=== PATIENT | female | born 1990 | race Two or more races ===

== ENCOUNTER → 2016-08-09 | Outpatient (CLI) | payer OTHER ==
[~2016-08-09] MED LIST: CEPH-460 PO; FERRCAP6 PO; PREN1TAB20 PO
== END ==
LOC: HPND 10:05
PROVIDERS: ATTEND Obstetrics & Gynecology
DX: O35.1XX0 Maternal care for (suspected) chromosomal abnormality in fetus, not applicable or unspecified (principal); Z3A.31 31 weeks gestation of pregnancy
CPT/HCPCS: 76811

== ENCOUNTER → 2016-09-06 | Outpatient (CLI) | payer OTHER | LOC: HPND 09:18 | PROVIDERS: ATTEND Obstetrics & Gynecology | DX: O35.1XX0 Maternal care for (suspected) chromosomal abnormality in fetus, not applicable or unspecified (principal); Z03.73 Encounter for suspected fetal anomaly ruled out | CPT/HCPCS: 76816 ==

== ENCOUNTER 2016-09-20 10:31 | Inpatient (IN) | payer MEDICAID, OTHER ==
[2016-09-20] VITALS (26 sets, daily range): BP systolic 97–117; BP diastolic 50–77; PULSE 76–116; RESP 18; TEMP 97.9–98.8
[~2016-09-20 10:31] MED LIST changes: -CEPH-460 PO
[2016-09-20] MEDS ORDERED: LACTATED RINGER'S 1000 ML INJ 1,000 ML IV PRN (11:05)
[2016-09-20] MEDS ORDERED: MINERAL OIL 10 ML VIAL TOPICAL PRN (11:15)
[2016-09-20] MEDS ORDERED: ONDANSETRON HCL 4 MG/2 ML VIAL IV PRN (11:15)
[2016-09-20] MEDS ORDERED: LIDOCAINE HCL 1% 50 ML VIAL I-DERMAL PRN (11:15)
[2016-09-20] MEDS ORDERED: SODIUM CHLORID 0.9% 500 ML INJ 500 ML IV PRN (11:15)
[2016-09-20] MEDS ORDERED: LIDOCAINE HCL 1% 50 ML VIAL INFIL PRN (11:15)
[2016-09-20] MEDS ORDERED: CITRIC ACID-SODIUM CITRATE LIQ 30 ML UDC PO SCH (11:15)
--- NOTE | 2016-09-20 11:16 | PD ---
HPI Chief Complaint S-ROM Date Seen: Sep 20, 2016 Time Seen: 11:00 Travel History International Travel<30 Days: No Contact w/Intl Traveler<30Days: No Known Affected Area: No History of Present Illness HPI Patient is a 26-year-old at 37 weeks who presents with SROM. [facility]. She noticed spontaneous rupture membranes as she was sleeping last night at 12:30 AM with a lot of warm, wet, clear fluid. She reports a little bit of contractions and she denies vaginal bleeding. She reports movement. Of note, she is GBS positive. GIL is 10/11/16. Amnisure was positive. Para: 1 : 2 History Past Medical History Medical History: Denies Significant Hx Obstetric History Obstetric History Patient is a . Her last delivery was uncomplicated full-term at 37 weeks with a 6 lbs. 5 oz. baby. She currently has a healthy 6-year-old. Past Surgical History Surgical History: No Previous Surgery Family History Family History: Negative Social History Narrative Social History Patient lives at home with her mother, her mother's boyfriend, her boyfriend, and her [id number]. Alcohol Use: No Tobacco Use: No Substance Abuse: No Allergies-Medications (Allergen,Severity, Reaction): Coded Allergies: No Known Allergies (Unverified , 09/20/16) Home Meds Active Scripts Ferrous Fumarate-Iron Polysacc (Integra F 125-1 mg)1 Cap Cap1 Tab PO DAILY #30 BOTTLE Ref 4 Prov:Rama Fleming 08/16/16 W/O Vit A W/ Fe Carbonyl (Citranatal Rx)27-1 Mg Tab1 Tab PO DAILY #30 TAB Ref 10 Prov:Cee Mckay CNMP 05/22/16 Discontinued Scripts Cephalexin (Keflex)500 Mg Gpe502 Mg PO Q8H #21 CAP Ref 0 Prov:Rama Fleming 08/16/16 Review of Systems General / Constitutional: No: Fever, Weight Gain, Chills, Other Eyes: No: Diploplia, Blurred Vision, Visual changes, Pain, Photophobia, Other HENT: No: Headaches, Vertigo, Lightheadedness Cardiovascular: No: Irregular Rhythm, Chest Pain or Discomfort, Palpitations, Tachycardia, Syncope, Varicosities, Edema, Cyanosis Respiratory: No: Cough, Short of Breath, Other Gastrointestinal: No: Nausea, Vomiting, Diarrhea Genitourinary: No: Dysuria, Decreased Urinary Output, Oliguria Musculoskeletal: Cramping, Pain, No: Limited ROM, Weakness, Edema Physical Exam Vital Signs Date Time Temp Pulse Resp B/P Pulse Ox O2 Delivery O2 Flow Rate FiO2 09/20/16 10:50 110 09/20/16 10:49 97.9 116 18 112/77 Narrative GENERAL: Well-nourished, well-developed patient. SKIN: Warm and dry. HEAD: Normocephalic and atraumatic. EYES: No scleral icterus. No injection or drainage. ENT: No nasal drainage noted. Mucous membranes pink. Airway patent. NECK: Supple, trachea midline. No JVD. CARDIOVASCULAR: Regular rate and rhythm without murmurs, gallops, or rubs. RESPIRATORY: Breath sounds equal bilaterally. No accessory muscle use. ABDOMEN/GI: Abdomen soft, non-tender, bowel sounds present, no rebound, no guarding Gravid to 37 weeks size GENITOURINARY: External Genitalia: intact and normal in appearance Cervix: Thick, posterior Dilatation: 1-2cm Effacement: 20% Station: -3 Presentation: Vertex Membranes: Ruptured Uterine Contractions: Every 4-5 minutes FHT's: Category: Cat I Baseline: 160 Reactive: Reactive Variability: moderate Decels: Some variable decelerations EXTREMITIES: No cyanosis or edema. BACK: Nontender without obvious deformity. No CVA tenderness. NEUROLOGICAL: Awake and alert. Motor and sensory grossly within normal limits. Five out of 5 muscle strength in all muscle groups. Normal speech. Data Data Vital Signs Reviewed: Yes Orders Vital Signs (Adult) .ON ADMISSION (09/20/16 10:46) ^ Labor Status (09/20/16 10:46) ^ Non Stress Test (09/20/16 10:46) ^ Hydration (09/20/16 10:46) Pamg-1 Test .ONCE (09/20/16 10:46) Ob (2e) Additional Admit Info (09/20/16 10:54) Admit To Inpatient (09/20/16 ) Code Status (09/20/16 11:05) Vital Signs (Adult) .Per protocol (09/20/16 11:05) Activity Oob Ad Rosaura (09/20/16 11:05) Heart (09/20/16 11:05) Amnioinfusion (09/20/16 11:05) Urinary Catheter Management .ONCE (09/20/16 11:05) Diet Liquid (09/20/16 Lunch) Lactated Ringer's 1000 Ml Inj (Lr 1000 M (09/20/16 11:05) Lactated Ringer's 1000 Ml Inj (Lr 1000 M (09/20/16 11:05) Sodium Chlorid 0.9% 500 Ml Inj (Ns 500 M (09/20/16 11:15) Sodium Chlor 0.9% 1000 Ml Inj (Ns 1000 M (09/20/16 11:25) Lidocaine 1% Inj (50 Ml) (Xylocaine 1% I (09/20/16 11:15) Citric Acid-Sodium Citrate Liq (Bicitra (09/20/16 11:15) Ondansetron Inj (Zofran Inj) (09/20/16 11:15) Fentanyl Inj (Fentanyl Inj) (09/20/16 11:15) Fentanyl Inj (Fentanyl Inj) (09/20/16 11:15) MDM Plan Patient is a 26-year-old at 37 weeks who presents with SROM. Amnisure was positive. [facility] Of note, she is GBS positive. GIL is 10/11/16. Cervical exam is 1-2 cm, 20% effaced, -3 position. Category 1 tracing with some variable decelerations. Contractions every 4-5 minutes. 1. SROM with +Amnisure Admit to inpatient for L&D Routine labs including ABO/Rh blood type, hold clot, type and screen, CBC, UA Liquid diet Patient declined any pain medications at this time LR IV Penicillin for GBS+ Monitor vital signs Monitor labor status/tocometry Monitor heart rate D/w Douglas Dockery MD R1 Sep 20, 2016 11:16
[2016-09-20] MEDS ORDERED: SODIUM CHLOR 0.9% 1000 ML INJ 1,000 ML IV PRN (11:25)
--- NOTE | 2016-09-20 11:36 | HHI.HP ---
History & Physical H&P HPI HPI Chief Complaint S-ROM Date Seen: Sep 20, 2016 Time Seen: 11:00 Travel History International Travel<30 Days: No Contact w/Intl Traveler<30Days: No Known Affected Area: No History of Present Illness HPI Patient is a 26-year-old at 37 weeks who presents with SROM. [facility]. She noticed spontaneous rupture membranes as she was sleeping last night at 12:30 AM with a lot of warm, wet, clear fluid. She reports a little bit of contractions and she denies vaginal bleeding. She reports movement. Of note, she is GBS positive. GIL is 10/11/16. Amnisure was positive. Para: 1 : 2 History (Limited) History Past Medical History Medical History: Denies Significant Hx Obstetric History Obstetric History Patient is a . Her last delivery was uncomplicated full-term at 37 weeks with a 6 lbs. 5 oz. baby. She currently has a healthy 6-year-old. Past Surgical History Surgical History: No Previous Surgery Family History Family History: Negative Social History Narrative Social History Patient lives at home with her mother, her mother's boyfriend, her boyfriend, and her [id number]. Alcohol Use: No Tobacco Use: No Substance Abuse: No Allergies-Medications Allergies-Medications (Allergen,Severity, Reaction): Coded Allergies: No Known Allergies (Unverified , 09/20/16) Home Meds Active Scripts Ferrous Fumarate-Iron Polysacc (Integra F 125-1 mg)1 Cap Cap1 Tab PO DAILY #30 BOTTLE Ref 4 Prov:Rama Fleming 08/16/16 W/O Vit A W/ Fe Carbonyl (Citranatal Rx)27-1 Mg Tab1 Tab PO DAILY #30 TAB Ref 10 Prov:Cee Mckay CNM [facility] 05/22/16 Discontinued Scripts Cephalexin (Keflex)500 Mg Bxa139 Mg PO Q8H #21 CAP Ref 0 Prov:Rama Fleming 08/16/16 ROS Review of Systems General / Constitutional: No: Fever, Weight Gain, Chills, Other Eyes: No: Diploplia, Blurred Vision, Visual changes, Pain, Photophobia, Other HENT: No: Headaches, Vertigo, Lightheadedness Cardiovascular: No: Irregular Rhythm, Chest Pain or Discomfort, Palpitations, Tachycardia, Syncope, Varicosities, Edema, Cyanosis Respiratory: No: Cough, Short of Breath, Other Gastrointestinal: No: Nausea, Vomiting, Diarrhea Genitourinary: No: Dysuria, Decreased Urinary Output, Oliguria Musculoskeletal: Cramping, Pain, No: Limited ROM, Weakness, Edema Physical Exam Physical Exam Vital Signs Date Time Temp Pulse Resp B/P Pulse Ox O2 Delivery O2 Flow Rate FiO2 09/20/16 10:50 110 09/20/16 10:49 97.9 116 18 112/77 Narrative GENERAL: Well-nourished, well-developed patient. SKIN: Warm and dry. HEAD: Normocephalic and atraumatic. EYES: No scleral icterus. No injection or drainage. ENT: No nasal drainage noted. Mucous membranes pink. Airway patent. NECK: Supple, trachea midline. No JVD. CARDIOVASCULAR: Regular rate and rhythm without murmurs, gallops, or rubs. RESPIRATORY: Breath sounds equal bilaterally. No accessory muscle use. ABDOMEN/GI: Abdomen soft, non-tender, bowel sounds present, no rebound, no guarding Gravid to 37 weeks size GENITOURINARY: External Genitalia: intact and normal in appearance Cervix: Thick, posterior Dilatation: 1-2cm Effacement: 20% Station: -3 Presentation: Vertex Membranes: Ruptured Uterine Contractions: Every 4-5 minutes FHT's: Category: Cat I Baseline: 160 Reactive: Reactive Variability: moderate Decels: Some variable decelerations EXTREMITIES: No cyanosis or edema. BACK: Nontender without obvious deformity. No CVA tenderness. NEUROLOGICAL: Awake and alert. Motor and sensory grossly within normal limits. Five out of 5 muscle strength in all muscle groups. Normal speech. Data Data Data Vital Signs Reviewed: Yes Orders Vital Signs (Adult) .ON ADMISSION (09/20/16 10:46) ^ Labor Status (09/20/16 10:46) ^ Non Stress Test (09/20/16 10:46) ^ Hydration (09/20/16 10:46) Pamg-1 Test .ONCE (09/20/16 10:46) Ob (2e) Additional Admit Info (09/20/16 10:54) Admit To Inpatient (09/20/16 ) Code Status (09/20/16 11:05) Vital Signs (Adult) .Per protocol (09/20/16 11:05) Activity Oob Ad Rosaura (09/20/16 11:05) Heart (09/20/16 11:05) Amnioinfusion (09/20/16 11:05) Urinary Catheter Management .ONCE (09/20/16 11:05) Diet Liquid (09/20/16 Lunch) Lactated Ringer's 1000 Ml Inj (Lr 1000 M (09/20/16 11:05) Lactated Ringer's 1000 Ml Inj (Lr 1000 M (09/20/16 11:05) Sodium Chlorid 0.9% 500 Ml Inj (Ns 500 M (09/20/16 11:15) Sodium Chlor 0.9% 1000 Ml Inj (Ns 1000 M (09/20/16 11:25) Lidocaine 1% Inj (50 Ml) (Xylocaine 1% I (09/20/16 11:15) Citric Acid-Sodium Citrate Liq (Bicitra (09/20/16 11:15) Ondansetron Inj (Zofran Inj) (09/20/16 11:15) Fentanyl Inj (Fentanyl Inj) (09/20/16 11:15) Fentanyl Inj (Fentanyl Inj) (09/20/16 11:15) MDM MDM Plan Patient is a 26-year-old at 37 weeks who presents with SROM. Amnisure was positive. [facility] Of note, she is GBS positive. GIL is 10/11/16. Cervical exam is 1-2 cm, 20% effaced, -3 position. Category 1 tracing with some variable decelerations. Contractions every 4-5 minutes. 1. SROM with +Amnisure Admit to inpatient for L&D Routine labs including ABO/Rh blood type, hold clot, type and screen, CBC, UA Liquid diet Patient declined any pain medications at this time LR IV Penicillin for GBS+ Monitor vital signs Monitor labor status/tocometry Monitor heart rate D/w Dr. Riley Cabral,Douglas Simpson MD R1 Sep 20, 2016 11:36
[2016-09-20] MEDS ORDERED: PENICILLIN G POTASSIUM INJ 5,000,000 UNITS in SODIUM CHLORIDE 0.9% INJ 100 ML IV ONE (12:00)
[2016-09-20] MEDS ORDERED: OXYTOCIN 30 UNITS-500ML PREMIX 500 ML IV ONE (12:00)
[2016-09-20 12:07] LABS: AUTOMATED NEUTROPHIL # 8.3 TH/MM3 (1.8-7.7); BASOPHIL % 0.1 % (0.0-2.0); EOSINOPHIL # 0.1 TH/MM3 (0-0.4); EOSINOPHIL % 0.5 % (0.0-4.0); HEMATOCRIT 34.3 % (35.0-46.0); HEMO FLAGS DIFF FINAL; LYMPH % 12.7 % (9.0-44.0); LYMPHOCYTE # 1.3 TH/MM3 (1.0-4.8); MEAN CELL VOLUME 93.3 FL (80.0-100.0); MEAN CORPUSCULAR HEMOGLOBIN 30.4 PG (27.0-34.0); MEAN CORPUSCULAR HGB CONC 32.6 % (32.0-36.0); MONO % 8.5 % (0.0-8.0); NEUT % 78.2 % (16.0-70.0); PLATELET COUNT 250 TH/MM3 (150-450); RED BLOOD COUNT 3.67 MIL/MM3 (4.00-5.30); RED CELL DISTRIBUTION WIDTH 16.1 % (11.6-17.2); WHITE BLOOD COUNT 10.6 TH/MM3 (4.0-11.0)
[2016-09-20] MEDS: LACTATED RINGER'S 1000 ML INJ 1,000 ML IV SCH ×2 (12:19→20:56)
[2016-09-20] MEDS ORDERED: OXYTOCIN 30 UNITS-500ML PREMIX 500 ML IV SCH (15:15)
[2016-09-20] MEDS: PENICILLIN G POTASSIUM INJ 2,500,000 UNITS in SODIUM CHLORIDE 0.9% INJ 100 ML IV SCH ×2 (16:23→20:56)
[2016-09-21] VITALS (14 sets, daily range): BP systolic 92–137; BP diastolic 52–77; PULSE 71–97; RESP 16–24; TEMP 97.7–99.2
[2016-09-21] MEDS: PENICILLIN G POTASSIUM INJ 2,500,000 UNITS in SODIUM CHLORIDE 0.9% INJ 100 ML IV SCH (00:57)
--- NOTE | 2016-09-21 01:30 | PD.LABORPN ---
Subjective Subjective This is a 26y/o at 37w1d who was admitted with SROM since 1230a on 2016. Pt with spaced out contractions, Pitocin was started at 3:30p. Tracing has been overall cat 1, except oxytocin had to be halved due to tachysystole and late decelerations. Pt feeling well, reports increased lower abdominal pain. Objective Vital Signs Vital Signs Date Time Temp Pulse Resp B/P Pulse Ox O2 Delivery O2 Flow Rate FiO2 09/21/16 00:30 77 18 116/65 09/21/16 00:30 98.8 09/20/16 23:26 98.8 108 18 109/64 09/20/16 22:56 98.8 09/20/16 22:30 76 18 115/57 09/20/16 21:30 18 09/20/16 21:30 79 102/60 09/20/16 20:30 18 09/20/16 20:30 79 99/57 09/20/16 20:00 117/64 09/20/16 20:00 83 18 09/20/16 19:30 83 110/68 09/20/16 19:30 18 09/20/16 19:30 98.5 09/20/16 18:33 85 113/63 09/20/16 18:00 18 09/20/16 18:00 116/62 09/20/16 18:00 82 Objective Pelvic Exam: Cervix: 6/80/-1 Membranes: ruptured Uterine Contractions: q 1-2 minutes apart FHT's: Category: 1 overall, when not tachysystole Assessment/Plan Problem List: (1) Prolonged rupture of membranes (2) 37 weeks gestation of Assessment and Plan 26y/o at 37w1d with pronged rupture of membranes. -tracing overall reassuring, episode of /maternal tachycardia resolved with IVF. -declining epidural or pain meds -episode of late decelerations due to tachysystole, resolved once oxytocin was halved -pt sensitive to oxytocin, making change, will hold at this dose Lena Lin MD Sep 21, 2016 01:30
--- NOTE | 2016-09-21 04:28 | PD.OB.DELI ---
Anesthesia: None Episiotomy: None Vaginal Delivery: Normal Presentation: Occiput anterior Nuchal Cord: None Delayed cord clamping (45 sec): Yes Infant: Male One Minute : 9 Five Minute : 9 Weight: 3405 Placenta: Spontaneous delivery Laceration: 3 deg Repair: Chromic interrupted Estimated blood loss: 250 Additional Information 26y/o at 37w1d who was admitted with SROM since 1230a on 09/20/2016. Pt with spaced out contractions so Pitocin was started at 3:30p. Tracing has been overall cat 1, except oxytocin had to be halved due to tachysystole and late decelerations which improved the FHR tracing. She did not receive an epidural. She pushed very effectively and the head was delivered atraumatically. The body was delivered atraumatically and a vigorous male was delivered. The was placed on the maternal abdomen. The cord was clamped and cut after it stopped pulsating. The vagina was examined and 3rd degree vaginal laceration was noted which were repaired with 2-0/3-0 chromic. The placenta was delivered spontaneously and noted to be intact. The lacerations were noted to be hemostatic. Bleeding was minimal. All sponge/lap/ instruments were accounted for. Lena Lin MD Sep 21, 2016 04:28
[2016-09-21] MEDS ORDERED: DOCUSATE SODIUM 50 MG/SENNA 8.6 MG TAB PO PRN (04:30)
[2016-09-21] MEDS ORDERED: WITCH HAZEL 50%/GLYCERIN 12.5% 40 PAD JAR TOPICAL PRN (04:30)
[2016-09-21] MEDS ORDERED: ZOLPIDEM TARTRATE 5 MG TAB PO PRN (04:30)
[2016-09-21] MEDS ORDERED: ALUMINUM/MAGNESIUM/SIMETH 30 ML CUP PO PRN (04:30)
[2016-09-21] MEDS ORDERED: ONDANSETRON ODT 4 MG TAB PO PRN (04:30)
[2016-09-21] MEDS ORDERED: oxyCODONE/ACETAMINOPHEN 5 MG/325 MG TAB PO PRN (04:30)
[2016-09-21] MEDS ORDERED: ACETAMINOPHEN 325 MG TAB PO PRN (04:30)
[2016-09-21] MEDS ORDERED: OXYTOCIN 30 UNITS-500ML PREMIX 500 ML IV SCH (04:30)
[2016-09-21] MEDS ORDERED: BENZOCAINE 20% TOPICAL SPRAY 60 ML CAN TOPICAL PRN (04:30)
--- NOTE | 2016-09-21 08:18 | HHI.OB ---
Subjective Post Day: 0 Remarks Patient is a 26-year-old delivered at 37 weeks and 1 days. Patient is day 0 after . Patient's pain is well-controlled. Patient reports not yet eating and drinking, but she denies any nausea or vomiting. Patient reports minimal bleeding. Patient has not passed gas or bowel movements. Patient has walked a little with lower extremity pain that she describes as weakness and without any chest pain or shortness of breath. Patient reports desire for contraception with IUD and breast-feeding. (Douglas Cabral MD R1) Objective Vitals/I&O Vital Signs Date Time Temp Pulse Resp B/P Pulse Ox O2 Delivery O2 Flow Rate FiO2 09/21/16 06:48 97.7 81 16 112/70 09/21/16 05:15 109/59 09/21/16 05:15 98.2 72 18 09/21/16 05:00 77 18 106/60 09/21/16 04:45 18 09/21/16 04:45 75 104/55 09/21/16 04:30 85 18 109/63 09/21/16 04:15 87 18 108/60 09/21/16 04:00 71 107/52 09/21/16 04:00 98.4 18 09/21/16 03:00 99.1 09/21/16 03:00 76 18 112/59 09/21/16 02:43 75 18 137/70 09/21/16 02:31 99.2 09/21/16 02:31 78 18 131/70 09/21/16 02:30 99.2 78 18 131/70 09/21/16 01:30 75 18 126/77 09/21/16 00:30 77 18 116/65 09/21/16 00:30 98.8 09/20/16 23:26 98.8 108 18 109/64 09/20/16 22:56 98.8 09/20/16 22:30 76 18 115/57 09/20/16 21:30 18 09/20/16 21:30 79 102/60 09/20/16 20:30 18 09/20/16 20:30 79 99/57 09/20/16 20:00 117/64 09/20/16 20:00 83 18 09/20/16 19:30 83 110/68 09/20/16 19:30 18 09/20/16 19:30 98.5 09/20/16 18:33 85 113/63 09/20/16 18:00 18 09/20/16 18:00 116/62 09/20/16 18:00 82 09/20/16 16:58 98.1 79 18 09/20/16 16:58 114/68 09/20/16 16:20 80 09/20/16 16:20 114/72 09/20/16 15:35 88 109/60 09/20/16 15:35 18 09/20/16 15:14 98.7 09/20/16 14:43 83 18 110/64 09/20/16 13:43 98.3 89 18 97/50 09/20/16 11:38 107/69 09/20/16 11:37 18 09/20/16 11:30 99 09/20/16 11:25 107 09/20/16 11:20 102 09/20/16 11:15 100 09/20/16 11:10 109 09/20/16 11:05 103 09/20/16 11:00 109 09/20/16 10:50 110 09/20/16 10:49 97.9 116 18 112/77 Objective Remarks GENERAL: Well-nourished, well-developed patient. CARDIOVASCULAR: Regular rate and rhythm without murmurs, gallops, or rubs. RESPIRATORY: Breath sounds equal bilaterally. No accessory muscle use. ABDOMEN/GI: Abdomen soft, non-tender. Fundus: Firm, non-tender at umbilicus. GENITOURINARY: Light to moderate bleeding. EXTREMITIES: No cyanosis or edema, non-tender, without signs of DVT. Medications and IVs Current Medications Medications (Trade) Dose Ordered Sig/Viktoriya Route Start Time Stop Time Status Last Admin Lactated Ringer's 1,000 ml @ 125 mls/hr Q8H IV 09/20/16 11:05 09/20/16 20:56 Lactated Ringer's 1,000 ml @ 3,000 mls/hr Q20M PRN IV 09/20/16 11:05 Sodium Chloride 500 ml @ 1,000 mls/hr ONCE PRN IV 09/20/16 11:15 09/21/16 11:14 (NS 1000 ml Inj) 1,000 ml @ 100 mls/hr Q10H PRN IV 09/20/16 11:25 (Zofran Inj) 4 mg Q6H PRN IV 09/20/16 11:15 (fentaNYL INJ) 50 mcg Q1H PRN IV PUSH 09/20/16 11:15 Fentanyl Citrate 100 mcg 100 mcg Q1H PRN IV PUSH 09/20/16 11:15 (Pfizerpen-G Inj/ NS Inj) 100 ml @ 200 mls/hr Q4H IV 09/20/16 16:00 09/21/16 00:57 Mineral Oil 10 ml 10 ml UNSCH PRN TOPICAL 09/20/16 11:15 Oxytocin 500 ml @ 0 mls/hr TITRATE IV 09/20/16 15:15 09/20/16 15:37 (Pitocin 30 Units-NS 500 ml Premix) 500 ml @ 100 mls/hr CONTINUOUS IV 09/21/16 04:30 09/21/16 09:29 (Tylenol) 650 mg Q4H PRN PO 09/21/16 04:30 (Motrin) 600 mg Q6H PRN PO 09/21/16 04:30 (Percocet 5-325 Mg) 1 tab Q4H PRN PO 09/21/16 04:30 (Americaine 20% Top Spr) 1 spray Q4H PRN TOPICAL 09/21/16 04:30 09/21/16 06:37 (Tucks Pads) 1 applic QID PRN TOPICAL 09/21/16 04:30 09/21/16 06:37 (Hannah-Colace) 2 tab Q12H PRN PO 09/21/16 04:30 (Ambien) 5 mg HS PRN PO 09/21/16 04:30 (M-M-R Ii Inj) 0.5 ml ONCE ONCE SQ 09/21/16 16:00 09/21/16 16:01 (Boostrix Inj) 0.5 ml ONCE ONCE IM 09/21/16 16:00 09/21/16 16:01 (Mag-Al Plus Susp Liq) 15 ml Q8H PRN PO 09/21/16 04:30 (Zofran Odt) 4 mg Q6H PRN PO 09/21/16 04:30 (Douglas Cabral MD R1) Assessment/Plan Problem List: (1) Prolonged rupture of membranes (2) 37 weeks gestation of (3) (spontaneous vaginal delivery) Assessment and Plan Patient is a 26-year-old delivered at 37 weeks and 1 days. Patient is day 0 after . Patient was counseled to do 6 weeks of pelvic rest. Patient was counseled to follow up in 6 weeks. Patient requested follow-up and will think about contraception. --AF VSS --Continue routine care --Motrin and Percocet when necessary for pain --Encourage OOB --Pelvic rest for 6 weeks will need follow-up appointment at that time. --Contraception: Patient wants IUD but will think about short-term options --Anticipate discharge in 1-2 days Discharge Planning Anticipate discharge in 1-2 days (Douglas Cabral MD R1) Attending Attestation Pt seen and examined. Agree with above. Colace due to 3rd degree laceration. (Lena Lin MD) Douglas Cabral MD R1 Sep 21, 2016 08:18 Lena Lin MD Sep 21, 2016 08:48
[2016-09-21] MEDS: IBUPROFEN 600 MG TAB PO PRN ×2 (09:44→19:14)
[2016-09-21] MEDS ORDERED: DIPHTH/TETANUS/ACEL PERTUSSIS (BOOSTER) 0.5 ML VIAL/PFS IM ONE (16:00)
[2016-09-21] MEDS ORDERED: MEASLES, MUMPS, RUBELLA VACCINE 0.5 ML VIAL SQ ONE (16:00)
[2016-09-21] MEDS ORDERED: DOCUSATE SODIUM 50 MG/SENNA 8.6 MG TAB PO SCH (16:30)
[2016-09-22] MEDS: IBUPROFEN 600 MG TAB PO PRN (05:02)
[2016-09-22 08:00] VITALS: BP 83/54; PULSE 83; RESP 16; TEMP 97.8
--- NOTE | 2016-09-22 09:58 | HHI.OB ---
Subjective Post Day: 1 Remarks Patient is a 26-year-old delivered at 37 weeks and 1 days. Patient is day 1 after . Patient's pain is well-controlled. Patient reports eating and drinking without any nausea or vomiting. Patient reports minimal bleeding. Patient has passed gas and bowel movements. Patient is walking without lower extremity pain or shortness of breath or chest pain. Patient reports desire for contraception and breast-feeding. Objective Vitals/I&O Vital Signs Date Time Temp Pulse Resp B/P Pulse Ox O2 Delivery O2 Flow Rate FiO2 09/21/16 19:00 92/58 09/21/16 19:00 98.1 97 24 Objective Remarks GENERAL: Well-nourished, well-developed patient. CARDIOVASCULAR: Regular rate and rhythm without murmurs, gallops, or rubs. RESPIRATORY: Breath sounds equal bilaterally. No accessory muscle use. ABDOMEN/GI: Abdomen soft, non-tender. Fundus: Firm, non-tender at umbilicus. GENITOURINARY: Light bleeding. EXTREMITIES: No cyanosis or edema, non-tender, without signs of DVT. Medications and IVs Current Medications Medications (Trade) Dose Ordered Sig/Viktoriya Route Start Time Stop Time Status Last Admin (Tylenol) 650 mg Q4H PRN PO 09/21/16 04:30 (Motrin) 600 mg Q6H PRN PO 09/21/16 04:30 09/22/16 05:02 (Percocet 5-325 Mg) 1 tab Q4H PRN PO 09/21/16 04:30 (Americaine 20% Top Spr) 1 spray Q4H PRN TOPICAL 09/21/16 04:30 09/21/16 06:37 (Tucks Pads) 1 applic QID PRN TOPICAL 09/21/16 04:30 09/21/16 06:37 (Ambien) 5 mg HS PRN PO 09/21/16 04:30 (Mag-Al Plus Susp Liq) 15 ml Q8H PRN PO 09/21/16 04:30 (Zofran Odt) 4 mg Q6H PRN PO 09/21/16 04:30 (Hannah-Colace) 2 tab Q12H PO 09/21/16 16:30 09/22/16 05:03 Assessment/Plan Problem List: (1) Prolonged rupture of membranes (2) 37 weeks gestation of (3) (spontaneous vaginal delivery) Assessment and Plan Patient is a 26-year-old delivered at 37 weeks and 1 days. Patient is day 1 after . Patient was counseled to do 6 weeks of pelvic rest. Patient was counseled to follow up in 6 weeks. Patient requested follow-up and contraception. --AF VSS --Continue routine care --Motrin and Percocet when necessary for pain --Encourage OOB --Pelvic rest for 6 weeks will need follow-up appointment at that time. --Contraception: Patient wants IUD and will offer depo shot --Anticipate discharge today Discharge Planning Anticipate discharge in 1-2 days Douglas Cabral MD R1 Sep 22, 2016 09:58
[2016-09-22] MEDS ORDERED: ACET1TAB86 PO (10:00)
[2016-09-22] MEDS ORDERED: IBUP-232 PO (10:00)
--- NOTE | 2016-09-22 10:01 | HHI.DCPOC ---
Discharge Care Plan Diagnosis: (1) Prolonged rupture of membranes (2) 37 weeks gestation of (3) (spontaneous vaginal delivery) Report Symptoms to Your Doctor -Temperature above 100.5 degrees -Redness, of incision or excessive or foul smelling drainage -Unusual pain or calf pain -Increased vaginal bleeding -Painful or difficulty urinating -Feelings of extreme sadness or anxiety after 2 weeks Goals to Promote Your Health * To prevent worsening of your condition and complications, please follow up with your doctor. * To maintain your health at the optimal level, please diet and exercise. Directions to Meet Your Goals Take your medications as prescribed Follow your dietary instruction Follow activity as directed Ensure plenty of rest for recovery Drink fluids for hydration Keep your appointments as scheduled Take your immunizations and boosters as scheduled If your symptoms worsen call your PCP, if no PCP go to Urgent Care Center or Emergency Room Smoking is Dangerous to Your Health. Avoid second hand smoke Call the 24-hour crisis hotline for domestic abuse at Douglas Cabral MD R1 Sep 22, 2016 10:01
[2016-09-22] MEDS ORDERED: medroxyPROGESTERone ACETATE SUSP 150 MG/ML SYRINGE IM ONE (10:30)
== END 2016-09-22 16:30 | disposition home or self-care (01) | DRG 775 ==
LOC: HOBED 10:31 → H2EB 11:02 → H1EA 09-21 06:06
PROVIDERS: ADMIT Obstetrics & Gynecology; ATTEND Obstetrics & Gynecology
PROC: 10E0XZZ Delivery of Products of Conception, External Approach (ICD-10-PCS; principal; 2016-09-21)
PROC: 0DQR0ZZ Repair Anal Sphincter, Open Approach (ICD-10-PCS; 2016-09-21)
DX: O99.824 Streptococcus B carrier state complicating childbirth (principal); O76 Abnormality in fetal heart rate and rhythm complicating labor and delivery; Z37.0 Single live birth; Z3A.37 37 weeks gestation of pregnancy; O70.20 Third degree perineal laceration during delivery, unspecified
CPT/HCPCS: 84112; 85025; 86850; 86900; 86901; J2540; J2590; J7120